=== PATIENT | male | born 1975 | race Caucasian/White ===

== ENCOUNTER 2016-05-24 17:59 | Emergency (ER) | payer OTHER ==
[2016-05-24 18:05] VITALS: BP 158/97; PULSE 87; TEMP 98.7; BMI 31.4
[2016-05-24] MEDS ORDERED: diazePAM 5 MG TABLET ONE ×2 (18:48→18:51)
[2016-05-24] MEDS ORDERED: KETOROLAC TROMETHAMINE 60 MG/2 ML VIAL ONE (18:48)
[2016-05-24] MEDS ORDERED: KETOROLAC TROMETHAMINE 60 MG/2 ML VIAL IM ONE (18:50)
[2016-05-24] MEDS ORDERED: diazePAM 5 MG TABLET PO ONE (18:50)
[2016-05-24] MEDS ORDERED: OXYCODONE/APAP 5/325MG COMBO TABLET PO ONE (19:41)
[2016-05-24] MEDS ORDERED: OXYCODONE/APAP 5/325MG COMBO TABLET ONE (19:51)
--- NOTE | 2016-05-24 20:57 | PDOC ---
History of Present Illness - General Chief Complaint: Back Pain Stated Complaint: BACK/LEG PAIN Time Seen by Provider: 05/24/16 18:37 History Source: Patient Exam Limitations: No Limitations - History of Present Illness Initial Comments: 05/24/16 20:53 CC CONTINUED LOWER BACK PAIN Occurred: reports: last week Severity: reports: severe Pain Location: reports: back Past History - Past Medical History Allergies/Adverse Reactions: Allergies Allergy/AdvReac Type Severity Reaction Status Date / Time No Known Allergies Allergy Verified 05/24/16 18:01 Home Medications: Ambulatory Orders Cyclobenzaprine HCl [Flexeril -] 5 mg PO TID PRN #21 tablet 05/22/16 Other medical history: denies - Immunization History Immunization Up to Date: Yes - Psycho/Social/Smoking Cessation Hx Anxiety: No Suicidal Ideation: No Smoking History: Current every day smoker Have you smoked in the past 12 months: Yes Number of Cigarettes Smoked Daily: 5 Information on smoking cessation initiated: No 'Breaking Loose' booklet given: 05/22/16 Hx Alcohol Use: No Drug/Substance Use Hx: No Substance Use Type: Alcohol Trauma Specific PMHX - Complaint Specific PMHX Arthritis: No Back Injury: No Neck Injury: No Hx Sacro Iliac Joint Dysfunction: No Review of Systems - Review of Systems Constitutional: No: Chills, Fever, Malaise HEENTM: Yes: Symptoms Reported Respiratory: No: Symptoms reported, Cough Cardiac (ROS): No: Symptoms Reported ABD/GI: No: Symptoms Reported : No: Symptoms Reported Musculoskeletal: Yes: Symptoms Reported, Back Pain. No: Neck Pain Integumentary: Yes: Symptoms Reported Neurological: Yes: Symptoms reported. No: Numbness, Paresthesia, Tingling, Dizziness *Physical Exam - Vital Signs Last Vital Signs Temp Pulse Resp BP Pulse Ox 98.7 F 87 20 158/97 100 05/24/16 18:01 05/24/16 18:01 05/24/16 18:01 05/24/16 18:01 05/24/16 18:01 - Physical Exam General Appearance: Yes: Appropriately Dressed. No: Apparent Distress HEENT: positive: TMs Normal, Pharynx Normal Neck: positive: Supple. negative: Tender, Rigid Respiratory/Chest: positive: Lungs Clear. negative: Chest Tender, Normal Breath Sounds Rectal Exam: positive: deferred Lymphatic: negative: Adenopathy Neurologic: positive: Fully Oriented, Alert, Motor Strength 5/5, Babinski. negative: Sensory Deficit Deep Tendon Reflexes: Ankle (L): 2+, Ankle (R): 2+, Knee (L): 2+, Knee (R): 2+ ED Treatment Course - Medications Given in the ED: ED Medications Discontinued Medications Generic Name Dose Route Start Last Admin Trade Name Tenzinq PRN Reason Stop Dose Admin Diazepam 10 mg 05/24/16 18:50 05/24/16 18:58 Valium - PO 05/24/16 18:51 10 mg ONCE ONE Administration Ketorolac Tromethamine 60 mg 05/24/16 18:50 05/24/16 18:58 Toradol Injection - IM 05/24/16 18:51 60 mg ONCE ONE Administration Oxycodone/Acetaminophen 2 combo 05/24/16 19:41 05/24/16 19:57 Percocet 5/325 - PO 05/24/16 19:42 2 combo ONCE ONE Administration Medical Decision Making - Medical Decision Making 05/24/16 20:55 ONLY SLIGHT BETTER POST TORADOL, VALIUM AND PERCOCET; WILL REFER TO ORTHO NEXT WEEK; ADD PERCOCET TO FLEXERIL AND NAPROSYN *DC/Admit/Observation/Transfer Diagnosis at time of Disposition: Back pain Qualifiers: Back pain location: low back pain Chronicity: unspecified Back pain laterality : bilateral Sciatica presence: with sciatica presence unspecified Qualified Code (s): M54.5 - Low back pain - Discharge Dispostion Disposition: HOME Condition at time of disposition: Stable Admit: No - Patient Instructions Additional Instructions: PLEASE SEE ORTHOPEDIST SOON POSSIBLE - Post Discharge Activity Work/School Note: Back to Work
== END 2016-05-24 22:06 | disposition home or self-care (01) ==
LOC: JERFT 17:59
PROC: 3E0233Z Introduction of Anti-inflammatory into Muscle, Percutaneous Approach (ICD-10-PCS; principal; 2016-05-24)
DX: M54.5 Low back pain (principal); F17.210 Nicotine dependence, cigarettes, uncomplicated
CPT/HCPCS: 96372; 99281-25